=== PATIENT | female | born 1965 ===

== ENCOUNTER 2023-01-23 12:46 | Inpatient (IN) ==
[2023-01-23] MEDS: Enoxaparin 40 MG/0.4 ML SYR SUBCUT SCH (15:08)
[2023-01-23 15:11] LABS: Anion Gap 5 mmol/L (2-16); CO2 Carbon Dioxide 27 mmol/L (22-32); Calcium 8.9 mg/dL (8.6-10.3); Chloride 107 mmol/L (101-111); Magnesium 1.9 mg/dL (1.9-2.7); Potassium 4.2 mmol/L (3.5-5.0); Sodium 139 mmol/L (135-145)
[2023-01-23 15:17] LABS: Blood Urea Nitrogen 17 mg/dL (6-24); Creatinine, Serum 1.16 mg/dL (0.51-0.95); Glucose 85 mg/dL (70-100); Phosphorus 3.1 mg/dL (2.5-5.0)
[2023-01-23 15:53] LABS: Urine Appearance Clear; Urine Bilirubin Negative (Negative); Urine Blood Negative (Negative); Urine Color Straw; Urine Glucose Negative (Negative); Urine Ketones Negative (Negative); Urine Nitrite Positive (Negative); Urine Protein Negative (Negative); Urine Specific Gravity 1.006 (1.002-1.030); Urine Urobilinogen Negative (Negative)
[2023-01-23 15:54] LABS: .Transferrin 154 mg/dL (203-362); Total Iron Binding Capacity 216 mcg/dL (250-450); Transferrin 154 mg/dL (203-362)
[2023-01-23 15:59] LABS: Urine Bacteria Absent (Absent); Urine Red Blood Cell 1+(3-5/hpf) (Absent); Urine Squamous Epithelial Cell Present (Absent); Urine White Blood Cell 3+(>20/hpf) (Absent)
[2023-01-23] MEDS ORDERED: cefTRIAXone 1 gm/50 mL D5W 1 GM/50 ML BAG IV SCH (17:00)
[2023-01-23 18:24] LABS: Ferritin 117.2 ng/mL (11-307)
[2023-01-23 18:40] LABS: % Iron Saturation 43 % (15-55); .Transferrin 159 mg/dL (203-362); Iron 96 ug/dL (50-212); Total Iron Binding Capacity 223 mcg/dL (250-450); Unsaturated Iron Binding 127 ug/dL
[2023-01-23] MEDS: Ammonium Lactate 12% 1 APPLIC TUBE TOPICAL SCH (21:57)
[2023-01-23] MEDS: cefTRIAXone 1 gm/50 mL D5W 1 GM/50 ML BAG IV SCH (21:57)
[2023-01-24] MEDS ORDERED: NS 0.9% 1000 ml BAG 1,000 ML IV SCH (06:00)
[2023-01-24 06:09] LABS: Hematocrit 39.4 % (35-45); Hemoglobin 13.8 g/dL (11.5-14.3); Mean Corpuscular Hemoglobin 36.3 pg (27-33); Mean Corpuscular Hgb Conc 34.9 g/dL (31-36); Mean Corpuscular Volume 103.9 fL (80-97); Mean Platelet Volume 8.6 fL (7.5-11.2); Platelet Count 256 10^3/uL (150-450); Red Cell Distribution Width 14.1 % (12-17); White Blood Count 5.2 10^3/uL (3.8-11.8)
[2023-01-24 06:24] LABS: INR 1.09 (0.88-1.18)
[2023-01-24 06:35] LABS: Calcium 9.3 mg/dL (8.6-10.3); Creatinine, Serum 1.27 mg/dL (0.51-0.95); Magnesium 1.9 mg/dL (1.9-2.7); Phosphorus 3.4 mg/dL (2.5-5.0); Potassium 3.9 mmol/L (3.5-5.0); eGFR CKD-EPI 49.3 (>60)
[2023-01-24] MEDS: Ammonium Lactate 12% 1 APPLIC TUBE TOPICAL SCH ×2 (09:20→19:37)
[2023-01-24] MEDS: Enoxaparin 40 MG/0.4 ML SYR SUBCUT SCH (14:48)
[2023-01-24] MEDS ORDERED: Lidocaine 1% VIAL 10 MG/ML VIAL 30 ML ONE (14:51)
[2023-01-24] MEDS ORDERED: ceFAZolin 2 GM in NS PREMIX 2 GM/100 ML BAG IVPB ONE (14:54)
[2023-01-24] MEDS ORDERED: Iohexol 300 (CONTRAST) 10 ML SDV ONE (14:59)
[2023-01-24] MEDS ORDERED: fentaNYL 100 mcg/2 ml 50 MCG/ML VIAL ONE (14:59)
[2023-01-24] MEDS ORDERED: Midazolam 5 mg/5 ml VIAL 1 mg/ml 5 ml VIAL (5 mg) ONE (14:59)
[2023-01-24] MEDS ORDERED: fentaNYL 100 mcg/2 ml 50 MCG/ML VIAL IV SLOW PU ONE (16:29)
[2023-01-24] MEDS ORDERED: Midazolam 10 mg/10 ml VIAL 1 mg/ml 10 ml VIAL (10 mg) IV SLOW PU ONE (16:29)
[2023-01-24] MEDS: cefTRIAXone 1 gm/50 mL D5W 1 GM/50 ML BAG IV SCH (21:41)
[2023-01-25 06:48] LABS: Calcium 9.1 mg/dL (8.6-10.3); Creatinine, Serum 1.27 mg/dL (0.51-0.95); Magnesium 1.8 mg/dL (1.9-2.7); eGFR CKD-EPI 49.3 (>60)
[2023-01-25 06:56] LABS: ABS Basophils 0.1 10^3/uL (0.0-0.1); ABS Eosinophils 0.1 10^3/uL (0.0-0.5); ABS Lymphocytes 0.8 10^3/uL (1.0-4.8); ABS Monocytes 0.5 10^3/uL (0.0-0.9); ABS Neutrophils 5.1 10^3/uL (1.5-7.6); Eosinophil % 1.2 %; Hematocrit 39.3 % (35-45); Hemoglobin 13.5 g/dL (11.5-14.3); Lymphocyte % 12.7 %; Mean Corpuscular Hemoglobin 36.2 pg (27-33); Mean Corpuscular Hgb Conc 34.4 g/dL (31-36); Mean Corpuscular Volume 105.2 fL (80-97); Mean Platelet Volume 8.3 fL (7.5-11.2); Nucleated Red Blood Cells % 0.1 /100 WBC (0.0-0.4); Platelet Count 239 10^3/uL (150-450); Red Blood Count 3.73 10^6/uL (3.63-4.92); Red Cell Distribution Width 14.3 % (12-17); White Blood Count 6.6 10^3/uL (3.8-11.8)
[2023-01-25] MEDS: Ammonium Lactate 12% 1 APPLIC TUBE TOPICAL SCH ×2 (07:44→20:33)
[2023-01-25] MEDS ORDERED: NS 0.9% 500 ml BAG 500 ML IV ONE (12:12)
[2023-01-25] MEDS: Enoxaparin 40 MG/0.4 ML SYR SUBCUT SCH (14:13)
[2023-01-25] MEDS: cefTRIAXone 1 gm/50 mL D5W 1 GM/50 ML BAG IV SCH (20:27)
[2023-01-26 07:21] LABS: Calcium 8.6 mg/dL (8.6-10.3); Creatinine, Serum 1.28 mg/dL (0.51-0.95); Magnesium 1.8 mg/dL (1.9-2.7); Potassium 3.7 mmol/L (3.5-5.0); eGFR CKD-EPI 48.9 (>60)
[2023-01-26] MEDS: Ammonium Lactate 12% 1 APPLIC TUBE TOPICAL SCH ×2 (08:42→20:15)
[2023-01-26] MEDS: Enoxaparin 40 MG/0.4 ML SYR SUBCUT SCH (13:52)
[2023-01-26] MEDS: cefTRIAXone 1 gm/50 mL D5W 1 GM/50 ML BAG IV SCH (20:09)
[2023-01-27 07:02] LABS: Calcium 8.6 mg/dL (8.6-10.3); Creatinine, Serum 1.12 mg/dL (0.51-0.95); Potassium 3.9 mmol/L (3.5-5.0); eGFR CKD-EPI 57.4 (>60)
[2023-01-27] MEDS: Ammonium Lactate 12% 1 APPLIC TUBE TOPICAL SCH ×3 (10:54→20:18)
[2023-01-27 11:57] LABS: C Reactive Protein 142.13 mg/L (<8.01)
[2023-01-27] MEDS: Enoxaparin 40 MG/0.4 ML SYR SUBCUT SCH (14:01)
[2023-01-27 16:28] LABS: C Reactive Protein 8.16 mg/L (<8.01)
[2023-01-27 18:33] LABS: Uric Acid 4.3 mg/dL (2.3-6.6)
[2023-01-27 20:42] LABS: IgG Immunoblot Negative (Negative); IgM Immunoblot Negative (Negative)
[2023-01-28 09:14] LABS: ABS Basophils 0.1 10^3/uL (0.0-0.1); ABS Eosinophils 0.1 10^3/uL (0.0-0.5); ABS Lymphocytes 0.7 10^3/uL (1.0-4.8); ABS Monocytes 0.6 10^3/uL (0.0-0.9); ABS Neutrophils 6.1 10^3/uL (1.5-7.6); Eosinophil % 1.1 %; Hematocrit 39.1 % (35-45); Hemoglobin 13.2 g/dL (11.5-14.3); Lymphocyte % 8.9 %; Mean Corpuscular Hemoglobin 35.9 pg (27-33); Mean Corpuscular Hgb Conc 33.8 g/dL (31-36); Mean Corpuscular Volume 106.3 fL (80-97); Platelet Count 199 10^3/uL (150-450); Red Blood Count 3.67 10^6/uL (3.63-4.92); Red Cell Distribution Width 14.7 % (12-17); White Blood Count 7.5 10^3/uL (3.8-11.8)
[2023-01-28 09:24] LABS: C Reactive Protein 185.23 mg/L (<8.01); Calcium 9.1 mg/dL (8.6-10.3); Creatinine, Serum 1.07 mg/dL (0.51-0.95); eGFR CKD-EPI 60.6 (>60)
[2023-01-28] MEDS: Ammonium Lactate 12% 1 APPLIC TUBE TOPICAL SCH ×2 (10:41→20:16)
[2023-01-28] MEDS: Enoxaparin 40 MG/0.4 ML SYR SUBCUT SCH (12:56)
[2023-01-29] MEDS: Ammonium Lactate 12% 1 APPLIC TUBE TOPICAL SCH ×2 (08:28→21:58)
[2023-01-29] MEDS: Enoxaparin 40 MG/0.4 ML SYR SUBCUT SCH (17:19)
[2023-01-30 09:17] LABS: ABS Basophils 0.1 10^3/uL (0.0-0.1); ABS Eosinophils 0.1 10^3/uL (0.0-0.5); ABS Lymphocytes 0.8 10^3/uL (1.0-4.8); ABS Monocytes 0.5 10^3/uL (0.0-0.9); Eosinophil % 1.7 %; Hemoglobin 13.1 g/dL (11.5-14.3); Lymphocyte % 15.1 %; Mean Corpuscular Hemoglobin 35.1 pg (27-33); Mean Corpuscular Hgb Conc 33.7 g/dL (31-36); Mean Corpuscular Volume 104.2 fL (80-97); Mean Platelet Volume 8.8 fL (7.5-11.2); Platelet Count 279 10^3/uL (150-450); Red Blood Count 3.74 10^6/uL (3.63-4.92); Red Cell Distribution Width 14.1 % (12-17); White Blood Count 5.5 10^3/uL (3.8-11.8)
[2023-01-30] MEDS: Ammonium Lactate 12% 1 APPLIC TUBE TOPICAL SCH ×2 (11:01→20:53)
[2023-01-30] MEDS: Enoxaparin 40 MG/0.4 ML SYR SUBCUT SCH (15:13)
[2023-01-31] MEDS: Ammonium Lactate 12% 1 APPLIC TUBE TOPICAL SCH (08:08)
[2023-01-31 14:41] VITALS: BP 121/78
[2023-01-31] MEDS: Enoxaparin 40 MG/0.4 ML SYR SUBCUT SCH (16:29)
== END 2023-01-31 16:50 | DRG 243 ==
LOC: SUATTDRO 13:36 → ICU 13:36 → MEDTELE 16:55
PROVIDERS: ADMIT Surgery Surgical Critical Care; ATTEND Internal Medicine